=== PATIENT | female | born 1965 | race Caucasian/White ===

== ENCOUNTER 2020-04-09 09:19 | Outpatient (CLI) | payer BC, SELFPAY ==
--- NOTE | ~2020-04-09 | MM_ITS ---
EXAMINATION: MM screening [facility] BI w ones[facility] HISTORY: Screening mammogram TECHNIQUE: Craniocaudal and mediolateral oblique 3-D tomosynthesis images were obtained and synthetic 2-D images were generated. CAD analysis was submitted and interpreted. COMPARISON: 04/05/2019, 03/30/2018, 03/26/2017 bilateral digital screening mammogram examinations BREAST PARENCHYMAL COMPOSITION: There are scattered areas of fibroglandular density. FINDINGS: Stable mild fibroglandular asymmetry. Occasional bilateral benign calcifications. There is no evidence of suspicious mass, calcification, or architectural distortion to suggest malignancy in e ither breast. There has been no suspicious interval change. IMPRESSION: 1. No mammographic evidence of malignancy. 2. Recommend routine screening mammography in one year. BI-RADS Category 2: Benign finding(s). Reviewed, dictated and finalized at location B. 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
== END 2020-04-09 09:20 | disposition home or self-care (01) ==
LOC: ANHIMG 09:22
PROVIDERS: PCP Internal Medicine; Visit Provider Obstetrics & Gynecology
DX: Z12.31 Encounter for screening mammogram for malignant neoplasm of breast (principal)
CPT/HCPCS: 77063; 77067

== ENCOUNTER → 2020-06-26 10:46 | Outpatient (CLI) | payer BC, SELFPAY ==
--- NOTE | ~2020-06-26 | XR_ITS ---
EXAMINATION: XR clavicle LT EXAM DATE: 06/26/2020 11:24 INDICATION: Palpable lump at the left sternoclavicular joint region. TECHNIQUE: 2 views of the left clavicle. There is no prior study for comparison. FINDINGS: Left clavicular head is without evidence of osseous erosion. Soft tissue unremarkable but please note that soft tissue masses not well evaluated in this location by this modality. There is m ild left acromioclavicular primary osteoarthritis. Cervical fusion hardware. Lung apices are clear. IMPRESSION: Mild left acromioclavicular joint osteoarthritis. Reviewed, dictated and finalized at location B. 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
== END ==
PROVIDERS: PCP Internal Medicine; Visit Provider Otolaryngology
DX: M19.012 Primary osteoarthritis, left shoulder (principal)
CPT/HCPCS: 73000

== ENCOUNTER 2020-07-23 07:32 | Outpatient (CLI) | payer BC, SELFPAY ==
--- NOTE | ~2020-07-23 | CT_ITS ---
EXAMINATION: CT soft tissue neck w con DATE: 07/23/2020 08:33 INDICATION: Left sternoclavicular joint hypertrophy. TECHNIQUE: Computed tomography (CT) of the neck was performed with 75 mL Omnipaque-350 intravenous co ntrast. Automated exposure control and iterative reconstruction technique were employed. The dose-chloe gth product was 598.01 mGy-cm. COMPARISON: Left clavicle radiographs 06/26/2020 FINDINGS: There are no pathologically enlarged lymph nodes. There are changes of left submandibular g land resection. There is mild plaque in the proximal internal carotid arteries with 0% stenosis relat karina to normal distal artery lumen diameters. There is mucosal thickening in right sphenoid sinus with thickening and sclerosis of the sinus house, consistent with chronic sinusitis. There is an old blow out fracture of floor of left orbit. The mastoid air cells are normal. There is severe cervical and u pper thoracic spondylosis. There are changes of anterior fusion procedure from C4 to C7. There is mil d osteoarthritis of the sternoclavicular joints. There are dystrophic calcifications between the left clavicle and left first rib adjacent to a rhomboid fossa of the clavicle. IMPRESSION: 1. Dystrophic calcifications between the left clavicle and left first rib adjacent to a rhomboid feliciano a of the clavicle. 2. Mild osteoarthritis of the sternoclavicular joints. Reviewed, dictated and finalized at location A. 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 Dystrophic calcifications between the left clavicle and left first rib adjac ent to a rhomboid fossa of the clavicle. 2. Mild osteoarthritis of the sternoclavicular joints.
[2020-07-23 08:21] LABS: Estimated Glomerular Filt Rate 51
== END 2020-07-23 07:33 | disposition home or self-care (01) ==
PROVIDERS: PCP Internal Medicine; Visit Provider Orthopaedic Surgery
DX: M79.89 Other specified soft tissue disorders (principal); M19.012 Primary osteoarthritis, left shoulder
CPT/HCPCS: 70491; Q9967

== ENCOUNTER 2021-01-04 15:41 | Emergency (ER) | payer BC, SELFPAY ==
--- NOTE | ~2021-01-04 | CT_ITS ---
EXAMINATION: CT soft tissue neck w con DATE: 01/04/2021 16:52 INDICATION: Left neck mass. TECHNIQUE: Computed tomography (CT) of the neck was performed with 75 mL Omnipaque-350 intravenous co ntrast. Automated exposure control and iterative reconstruction technique were employed. The dose-chloe gth product was 500.28 mGy-cm. COMPARISON: CT neck 07/23/2020 FINDINGS: There is complete opacification of the visualized portion of right sphenoid sinus with thic kening and sclerosis of the sinus house, consistent with chronic sinusitis. There is an old blowout f racture of floor of left orbit. There are changes of resection of left submandibular gland. There is subcutaneous fat stranding and skin thickening in left anterior neck. There is a skin marker in this area. There is plaque in the proximal internal carotid arteries with 0% stenosis relative to normal d istal artery lumen diameters. There are no pathologically enlarged lymph nodes. There are changes of anterior fusion procedure from C4 to C7. There is severe upper thoracic spondylosis. IMPRESSION: 1. Subcutaneous fat stranding and skin thickening in left anterior neck, consistent with inflammation . No abscess. 2. Chronic sinusitis. Reviewed, dictated and finalized at location A. IMPRESSION: 1. Subcutaneous fat stranding and skin thickening in left anterior neck, consis tent with inflammation. No abscess. 2. Chronic sinusitis.
[2021-01-04 16:17] VITALS: BP 153/92; PULSE 90; RESP 17; TEMP 36.4; O2SAT 96
[2021-01-04 16:44] LABS: Basophils Percent Auto 0.4 % (0.2-1.2); Eosinophils Absolute Auto 0.2 K/mm3 (0-0.3); Eosinophils Percent Auto 3.1 % (0-4.4); Hematocrit 39.4 % (37.0-47.0); Immature Granulocyte Absolute 0.02 K/mm3 (0.00-0.031); Immature Granulocyte Percent A 0.3 % (0-0.5); Lymphocytes Absolute Auto 2.09 K/mm3 (0.9-3.2); Lymphocytes Percent Auto 30.5 % (18.3-44.2); Mean Corpuscular Hemoglobin 31.6 pg (26-34); Mean Corpuscular Volume 95.6 fl (80-100); Mean Platelet Volume 10.3 fl (7.4-10.4); Monocytes Absolute Auto 0.6 K/mm3 (0.1-0.6); Monocytes Percent Auto 8.6 % (2.6-8.5); Neutrophils Absolute Auto 3.9 K/mm3 (1.3-6.7); Neutrophils Percent Auto 57.1 % (45.5-73.1); Platelet Count Result 193 k/mm3 (150-375); Red Blood Count 4.12 M/mm3 (4.2-5.4); Red Cell Distribution Width 13.5 % (11.5-14.5); White Blood Count 6.9 K/mm3 (4.5-10.0)
[2021-01-04 17:01] LABS: Albumin Level 4.3 g/dL (3.5-5.1); Alkaline Phosphatase 81 U/L (38-126); Aspartate Amino Transferase 70 U/L (14-36); Bilirubin,Total 0.5 mg/dL (0.2-1.3); Blood Urea Nitrogen 16 mg/dL (7-17); CRP 2.8 mg/dL (<1.0); Carbon Dioxide 30 mmol/L (22-30); Estimated CRCL calculation 13 ml/min; Estimated Glomerular Filt Rate > 60; Glucose 91 mg/dL (65-110)
[2021-01-04 17:13] LABS: Alanine Aminotransferase 93 U/L (4-35); Anion Gap 10 mmol/L (8-16); Calcium 9.7 mg/dL (8.4-10.2); Chloride 100 mmol/L (98-107); Potassium 3.5 mmol/L (3.4-5.0); Sodium 140 mmol/L (137-145)
--- NOTE | 2021-01-04 17:48 | ED.NECK ---
HPI - Neck Pain/Injury General Chief Complaint: Neck Pain/Injury Stated Complaint: nodule on neck Time Seen by Provider: 01/04/21 17:30 History of Present Illness HPI Narrative: Patient presents neck pain. Patient reports small swelling on her left neck since Thursday getting worse over the past day. She was concerned and wanted to come in for evaluation. She not member any specific injury to the area she denies any nausea or vomiting she denies shortness of breath denies difficulty with swallowing she denies fevers. Related Data Home Medications Medication Instructions Recorded Confirmed allopurinol 300 mg tablet 300 mg PO DAILY 05/07/20 07/31/20 bupropion HCl 150 mg tablet,12 hr 150 mg PO DAILY 05/07/20 07/31/20 sustained-release celecoxib 200 mg capsule 200 mg PO DAILY 05/07/20 07/31/20 colchicine 0.6 mg tablet 0.6 mg PO BID 05/07/20 07/31/20 desloratadine 5 mg tablet 5 mg PO DAILY 05/07/20 07/31/20 esomeprazole magnesium 40 mg 40 mg PO DAILY 05/07/20 07/31/20 capsule,delayed release estradiol 1 mg tablet 1 mg PO DAILY 05/07/20 07/31/20 furosemide 40 mg tablet 40 mg PO QAM 05/07/20 07/31/20 hydrocodone 5 mg-acetaminophen 325 1 tablet PO Q4H PRN 05/07/20 07/31/20 mg tablet lorazepam 0.5 mg tablet 0.5 mg PO TID PRN 05/07/20 07/31/20 losartan 25 mg tablet 25 mg PO DAILY 05/07/20 07/31/20 nabumetone 750 mg tablet 750 mg PO BID 05/07/20 07/31/20 orphenadrine citrate 100 mg 100 mg PO Q12H 05/07/20 07/31/20 tablet,extended release pregabalin 150 mg capsule 150 mg PO TID 05/07/20 07/31/20 Allergies Allergy/AdvReac Type Severity Reaction Status Date / Time lisinopril Allergy Unknown NIGHT TIME Verified 07/17/20 09:28 COUGH Bumble Bee Allergy Unknown DIZZINESS, Uncoded 07/17/20 09:28 SWELLING Review of Systems Review of Systems: CONSTITUTIONAL: Denies fever, chills, or sweats. EYES: Denies visual changes, redness, or discharge. ENT: Denies rhinorrhea, congestion, sore throat, or otalgia. CARDIOVASCULAR: Denies chest pain, palpitations, or edema. RESPIRATORY: Denies cough or dyspnea. GASTROINTESTINAL: Denies abdominal pain, nausea, vomiting, or diarrhea. GENITOURINARY: Denies dysuria or hematuria. SKIN: Denies rash or itching. MUSCULOSKELETAL: Denies back pain, joint pain, or myalgia. NEUROLOGIC: Denies headache, numbness, dizziness, or weakness. PSYCHIATRIC: Denies anxiety or depression. All systems reviewed & are unremarkable except as noted in HPI and below PMFSH Past Medical History Medical History Dysphagia Overweight Zenkers diverticulum Surgical History Surgical History History of back surgery History of bilateral knee replacement History of neck surgery Social History Social History Smoking status: Never smoker Second hand tobacco smoke exposure: No Alcohol intake: current Substance use: never Substance use type: does not use Gender identity (if verbalized by the patient): Female Exam Narrative: GENERAL: Well-appearing, well-nourished, and in no acute distress. HEAD: Normocephalic, atraumatic. EYES: PERRLA and EOMI. ENT: Nares clear, no rhinorrhea or epistaxis. Mucous membranes moist. NECK: Supple. Warm area of erythema 1 x 3 cm on the left inferior anterior aspect of the neck no open or draining wounds no focal fluctuance. No tenderness palpation on the submandibular space CHEST: Clear to auscultation. No respiratory distress. No wheezes rales or rhonchi HEART: Regular rate and rhythm. No murmur heard. Normal peripheral pulses. EXTREMITIES: Normal range of motion. No edema. SKIN: Warm, dry, no rash. NEURO: No focal deficits. Alert and oriented x3. PSYCH: Normal mood and affect. Course Vital Signs Vital signs: Vital Signs Temperature 36.4 C L 01/04/21 16:17 Pulse Rate 90 01/04/21 16:17 Respi
[2021-01-04 18:25] VITALS: BP 140/93; PULSE 80; RESP 18; TEMP 36.8; O2SAT 99
== END 2021-01-04 18:25 | disposition home or self-care (01) ==
PROVIDERS: Emergency Provider Emergency Medicine; PCP Internal Medicine
DX: L03.221 Cellulitis of neck (principal)
CPT/HCPCS: 36415; 70491; 80053; 85025; 86140; 99284; Q9967

== ENCOUNTER 2021-03-06 13:31 | Outpatient (CLI) | payer BC, SELFPAY ==
--- NOTE | ~2021-03-06 | CT_ITS ---
EXAMINATION: CT sinus wo con DATE: 03/06/2021 13:48 INDICATION: Allergic rhinitis TECHNIQUE: Computed tomography (CT) of the paranasal sinuses was performed without contrast. Iterativ e reconstruction technique was employed. Exam dose: 282.50 mGy-cm total exam DLP. COMPARISON: None FINDINGS: There is a periapical abscess at #14 tooth. There is minimal rightward bowing of the nasal septum. The nasal turbinates are prominent but symmetric in size. Minimal cedric bullosa of both middle nasal turbinates. The ostiomeatal units are patent. There is extensive soft tissue opacification of the right sphenoid sinus, chronic, with mild soft tis joan calcification. The paranasal sinuses are otherwise normally developed and aerated. The mastoid air cells are normally developed and aerated. Middle and inner ear apparatus are unremark able. IMPRESSION: Very prominent soft tissue thickening and mild calcification of the sphenoid sinus Reviewed, dictated and finalized at Location A. Reviewed, dictated and finalized at location B. IMPRESSION: Very prominent soft tissue thickening and mild calcification of th e sphenoid sinus
== END 2021-03-06 13:32 | disposition home or self-care (01) ==
LOC: ANHIMG 13:35
PROVIDERS: PCP Internal Medicine; Visit Provider Otolaryngology
DX: B49 Unspecified mycosis (principal); J30.89 Other allergic rhinitis; R93.0 Abnormal findings on diagnostic imaging of skull and head, not elsewhere classified
CPT/HCPCS: 70486

== ENCOUNTER 2021-04-17 09:13 | Outpatient (CLI) | payer BC, SELFPAY ==
--- NOTE | ~2021-04-17 | MM_ITS ---
EXAMINATION: MM screening [facility] BI w onesimo HISTORY: Screening mammogram TECHNIQUE: Craniocaudal and mediolateral oblique 3-D tomosynthesis images were obtained and synthetic 2-D images were generated. CAD analysis was submitted and interpreted. COMPARISON: 04/09/2020, 04/05/2019, 03/30/2018 BREAST PARENCHYMAL COMPOSITION: There are scattered areas of fibroglandular density. FINDINGS: There is no evidence of suspicious mass, calcification, or architectural distortion to sugg est malignancy in either breast. There has been no suspicious interval change. IMPRESSION: 1. No mammographic evidence of malignancy. 2. Recommend routine screening mammography in one year. BI-RADS Category 1: Negative Reviewed, dictated and finalized at location A. 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
== END 2021-04-17 09:14 | disposition home or self-care (01) ==
LOC: ANHIMG 09:14
PROVIDERS: PCP Internal Medicine; Visit Provider Obstetrics & Gynecology
DX: Z12.31 Encounter for screening mammogram for malignant neoplasm of breast (principal)
CPT/HCPCS: 77063; 77067

== ENCOUNTER 2022-05-12 08:40 | Outpatient (CLI) | payer BC, SELFPAY ==
--- NOTE | ~2022-05-12 | MM_ITS ---
EXAMINATION: MM screening [facility] BI w onesimo HISTORY: Screening TECHNIQUE: Craniocaudal and mediolateral oblique 3-D tomosynthesis images were obtained and synthetic 2-D images were generated. CAD analysis was submitted and interpreted. COMPARISON: Comparison to multiple prior studies sequentially, with oldest reviewed study dated 05/2015. BREAST PARENCHYMAL COMPOSITION: There are scattered areas of fibroglandular density. FINDINGS: There is no evidence of suspicious mass, calcification, or architectural distortion to sugg est malignancy in either breast. There has been no suspicious interval change. IMPRESSION: 1. No mammographic evidence of malignancy. 2. Recommend routine screening mammography in one year. BI-RADS Category 1: Negative Reviewed, dictated and finalized at location A. 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
== END 2022-05-12 08:41 | disposition home or self-care (01) ==
LOC: ANHIMG 08:44
PROVIDERS: PCP Internal Medicine; Visit Provider Obstetrics & Gynecology
DX: Z12.31 Encounter for screening mammogram for malignant neoplasm of breast (principal)
CPT/HCPCS: 77063; 77067

== ENCOUNTER 2023-12-10 14:05 | Outpatient (CLI) | payer MEDICARE, OTHER, SELFPAY ==
--- NOTE | ~2023-12-10 | MM_ITS ---
EXAMINATION: MM screening [facility]jun BI w onesimo HISTORY: Screening TECHNIQUE: Craniocaudal and mediolateral oblique 3-D tomosynthesis images were obtained and synthetic 2-D images were generated. CAD analysis was submitted and interpreted. COMPARISON: Comparison to multiple prior studies sequentially, with oldest reviewed study dated 06/2016. BREAST PARENCHYMAL COMPOSITION: Not dense: There are scattered areas of fibroglandular density. FINDINGS: There is no evidence of suspicious mass, calcification, or architectural distortion to sugg est malignancy in either breast. There has been no suspicious interval change. IMPRESSION: 1. No mammographic evidence of malignancy. 2. Recommend routine screening mammography in one year. BI-RADS Category 1: Negative Reviewed, dictated and finalized at location B.
== END 2023-12-10 14:06 | disposition home or self-care (01) ==
PROVIDERS: PCP Internal Medicine; Visit Provider Obstetrics & Gynecology
DX: Z12.31 Encounter for screening mammogram for malignant neoplasm of breast (principal)
CPT/HCPCS: 77063; 77067